=== PATIENT | female | born 1945 | race Caucasian/White ===

== ENCOUNTER 2017-05-13 17:23 | Emergency (ER) | payer OTHER ==
[~2017-05-13] VITALS: Ht 157.5 cm; Wt 69.2 kg
[~2017-05-13 17:23] MED LIST: ACET-1256 PO; ASCA500 PO; LMC25 PO; NAPR1TAB9 PO; SERT25TA PO
[2017-05-13 17:27] VITALS: TEMP 36.7; Ht 157.5 cm; Wt 69.2 kg
[2017-05-13] MEDS ORDERED: LAMO200T38 PO (18:08)
[2017-05-13] MEDS ORDERED: VALERIAN ROOT PO (18:08)
[2017-05-13] MEDS ORDERED: SERT50TA PO (18:08)
[2017-05-13 18:28] LABS: HEMATOCRIT 42.9 % (37-47); MEAN CELL VOLUME 90.1 fL (80-100); MEAN CORPUSCULAR HGB CONC 33.3 g/dl (32-36); PLATELET COUNT 293 K/uL (130-400); RED BLOOD COUNT 4.76 M/uL (4.2-5.4); WHITE BLOOD COUNT 6.29 K/uL (4.8-10.8)
--- NOTE | 2017-05-13 18:37 | EMERGENCY ROOM VISIT NOTE ---
History Report prepared by Tiffany: Som Carmona Under the Supervision of: Dr. Bong Cabral M.D. First contact with patient: 17:34 Chief Complaint: ANXIETY Stated Complaint: SEVERE ANXIETY, NAUSEA History of Present Illness The patient is a 72 year old female who presents to the Emergency Room with complaints of constant, worsening anxiety beginning 2 weeks ago. The patient states that she has not been able to sleep for the past two weeks, and she recently altered the medications that she has been taking. She reports that she reduced her dose of Lamictal from 200mg to 100mg, and she takes 50mg of Zoloft as well. The patient notes that she stopped taking all of her other medications because she believes her medication is causing her symptoms. She states "all I want to do is get off of all my medication." The patient reports that she is experiencing auditory hallucinations, nausea, and tremors. She denies suicidal intentions. The patient also denies being exposed to stressor such as family, friends, and financial issues. She also denies a history of liver, kidney, and spleen issues. The patient states that she has never been hospitalized for her anxiety. She reports that her anxiety started 2 years ago when her significant other from COPD. The patient notes that two weeks ago she went to see her psychiatrist Dr. Cota after a weekend of terrible anxiety. She states that she started a new medication (Buspar) but stopped taking it because it caused a major anxiety attack. Source of History: patient Onset: two weeks ago Position: other (global) Quality: other (anxiety) Timing: constant, worsening Associated Symptoms: + nausea Note: Associated symptoms: auditory hallucinations and tremors. She denies suicidal intentions. Review of Systems See HPI for pertinent positives & negatives. A total of 10 systems reviewed and were otherwise negative. Past Medical & Surgical Medical Problems: (1) ESOPHAGEAL REFLUX (2) HYPERLIPIDEMIA NEC/NOS Family History Patient reports no known family medical history. Social History Smoking Status: Never Smoker Alcohol Use: none Drug Use: none Marital Status: single Housing Status: assisted living Occupation Status: retired Current/Historical Medications Scheduled Lamotrigine (Lamictal), 100 MG PO QAM Sertraline (Zoloft), 50 MG PO DAILY [Valerian Root], 1 CAP PO DAILY Scheduled PRN Hydroxyzine Pamoate (Vistaril), 2 CAP PO Q6H PRN for Anxiety/Agitation Allergies Coded Allergies: No Known Allergies (Verified , 04/09/17) Physical Exam Vital Signs Date Time Temp Pulse Resp B/P (MAP) Pulse Ox O2 Delivery O2 Flow Rate FiO2 05/13/17 17:27 36.7 92 20 142/91 97 Room Air Physical Exam GENERAL: Patient is anxious, no distress. HEENT: No acute trauma, normocephalic atraumatic, mucous membranes moist, no nasal congestion, no scleral icterus. NECK: No stridor, no adenopathy, no meningismus, trachea is midline. LUNGS: Clear to auscultation bilaterally, no wheeze, no rhonchi, breath sounds equal. HEART: Without murmurs gallops or rubs, regular rate and rhythm. ABDOMEN: Soft, nontender, bowel sounds positive, no hernias, no peritonitis. EXTREMITIES: No cyanosis or edema, full range of motion of all the joints without pain or difficulty, no signs for acute trauma. NEUROLOGIC: Oriented x 3, no acute motor or sensory deficits, no focal weakness. SKIN: No rash, no jaundice, no diaphoresis. PSYCH: Denies suicidal intensions, pt is anxious and cooperative Medical Decision & Procedures Laboratory Results 05/13/17 18:15 05/13/17 18:15 Test 05/13/17 18:15 Red Blood Count 4.76 M/uL (4.2-5.4) Mean Corpuscular Volume 90.1 fL (80-100) Mean Corpuscular Hemoglobin 30.0 pg (25-34) Mean Corpuscular Hemoglobin Concent 33.3 g/dl (32-36) RDW Standard Deviation 42.6 fL (36.4-46.3) RDW Coefficient of Variation 12.9 % (11.5-14.5) Mean Platelet Volume 10.0 fL (7.4-10.4) Anion Gap 10.0 mmol/L (3-11) Est Creatinine Clear Calc Drug Dose 59.2 ml/min Estimated GFR () 89.6 Estimated GFR (Non- 77.3 BUN/Creatinine Ratio 25.1 (10-20) Calcium Level 9.4 mg/dl (8.5-10.1) Total Bilirubin 0.3 mg/dl (0.2-1) Aspartate Amino Transf (AST/SGOT) 16 U/L (15-37) Alanine Aminotransferase (ALT/SGPT) 25 U/L (12-78) Alkaline Phosphatase 102 U/L (45-117) Total Protein 7.8 gm/dl (6.4-8.2) Albumin 4.3 gm/dl (3.4-5.0) Globulin 3.5 gm/dl (2.5-4.0) Albumin/Globulin Ratio 1.2 (0.9-2) Thyroid Stimulating Hormone (TSH) 1.540 uIu/ml (0.300-4.500) Ethyl Alcohol mg/dL < 3.0 mg/dl (0-3) Laboratory results reviewed by me. ED Course 1734: The patient was evaluated in room A06. A complete history and physical exam was performed. 1854: Reevaluated the patient. She is feeling better and is willing to try Vistaril. Discussed results and discharge instructions: she verbalized understanding and agreement. The patient is ready for discharge. 1858: Ordered Vistaril Tab 100mg PO--pt was given the pills to take home since the pharmacies are currently closed. Medical Decision Differential diagnosis: anxiety, depression, suicidal ideations, thyroid disorder, drug and alcohol abuse, medication side effect Medication Reconciliation: I attest that I have personally reviewed the patient' s current medication list. Blood pressure screening: Patient was found to have a slightly elevated blood pressure due to circumstances. I do not believe that the patient requires hypertension monitoring. There is no leukocytosis or concerning anemia. No significant electrolyte abnormality, kidney failure or hepatitis. The patient appears to be in a euthyroid state. Alcohol level is undetectable. The patient denies being suicidal. She does not really want to stay in the hospital. She was looking for some help with her anxiety. She feels that when she weans off all her meds, she will be better. The psychiatry services were contacted. They suggested Vistaril when necessary. The patient will see her psychiatrist this week for a recheck. The patient was encouraged to return if feeling suicidal or if feeling worse. She did not meet any criteria for an involuntary commitment. Of note, as per old records, she is bipolar. The Lamictal was started because of her bipolar disease. Impression Primary Impression: Anxiety Scribe Attestation The scribe's documentation has been prepared under my direction and personally reviewed by me in its entirety. I confirm that the note above accurately reflects all work, treatment, procedures, and medical decision making performed by me. Departure Information Dispostion Home / Self-Care Prescriptions Hydroxyzine Pamoate (VISTARIL) 25 Mg Cap 2 CAP PO Q6H Y for Anxiety/Agitation for 5 Days, #40 CAP 1 Refill Prov: Bong Cabral M.D. 05/13/17 Referrals Mary Ann Lopez M.D. (PCP) Forms HOME CARE DOCUMENTATION FORM, IMPORTANT VISIT INFORMATION Patient Instructions My [facility] Additional Instructions use vistaril 2 tab (50 mg) every 6 hours as needed for your symptoms talk with your doctor for an appt this week return if worsening or if you are feeling suicidal lab testing today was all ok
[2017-05-13 18:46] LABS: BUN/CREATININE RATIO 25.1 (10-20); CALCIUM 9.4 mg/dl (8.5-10.1); CREATININE 0.76 mg/dl (0.60-1.20); POTASSIUM 4.1 mmol/L (3.5-5.1)
[2017-05-13 18:57] LABS: ALB/GLOB RATIO 1.2 (0.9-2); THYROID STIMULATING HORMONE 1.54 uIu/ml (0.300-4.500)
[2017-05-13] MEDS ORDERED: hydrOXYzine HCL 25 MG TAB PO STA (18:58)
[2017-05-13] MEDS ORDERED: HYDR25CA PO (19:03)
[2017-05-13] MEDS ORDERED: EMPTY 8 DRAM VIAL ONE (19:09)
[2017-05-13 19:20] VITALS: BP 143/87; PULSE 73; O2SAT 99
[2017-10-11] MEDS ORDERED: GABA-113 PO (08:42)
[2017-10-11] MEDS ORDERED: FLUT0.15 (08:42)
== END 2017-05-13 19:20 | disposition home or self-care (01) ==
LOC: C.EDB 17:24 → C.EDA 19:20
DX: F41.9 Anxiety disorder, unspecified (principal); R11.0 Nausea; E78.5 Hyperlipidemia, unspecified; Z79.899 Other long term (current) drug therapy

== ENCOUNTER → 2017-07-20 | Outpatient (CLI) | payer OTHER ==
[~2017-07-20] MED LIST changes: -ACET-1256 PO; -ASCA500 PO; +HYDR25CA PO; +LAMO200T38 PO; -LMC25 PO; -NAPR1TAB9 PO; -SERT25TA PO; +SERT50TA PO; +VALERIAN ROOT PO
[2017-07-20 15:00] LABS: URINE APPEARANCE CLEAR (CLEAR); URINE BILIRUBIN NEG (NEG); URINE COLOR DK YELLOW; URINE NITRITE NEG (NEG); URINE SPECIFIC GRAVITY 1.021 (1.000-1.030); UROBILINOGEN NEG (NEG); ZZUR CULT IF INDIC CLEAN CATCH NO
[2017-07-20 15:02] LABS: BASO % 0.7 %; BASO ABS # 0.04 K/uL (0-0.2); COMPLETE YES; EOS % 5.9 %; IG% 0.2 %; LYMPH % 38.1 %; LYMPH ABS # 2.21 K/uL (1.2-3.4); MEAN CELL VOLUME 91.5 fL (80-100); MEAN CORPUSCULAR HEMOGLOBIN 30.3 pg (25-34); MEAN CORPUSCULAR HGB CONC 33.1 g/dl (32-36); MEAN PLATELET VOLUME 10.6 fL (7.4-10.4); MONO % 9.1 %; PLATELET COUNT 266 K/uL (130-400); RED BLOOD COUNT 4.26 M/uL (4.2-5.4)
[2017-07-20 15:09] LABS: PROTHROMBIN TIME (PATIENT) 10.7 SECONDS (9.0-12.0)
[2017-07-20 15:11] LABS: MANUAL MICROSCOPIC REQUIRED? NO; REVIEW REQ? NO
[2017-07-20 15:32] LABS: BLOOD UREA NITROGEN 30 mg/dl (7-18); CALCIUM 9.5 mg/dl (8.5-10.1); CARBON DIOXIDE 27 mmol/L (21-32); CHLORIDE 106 mmol/L (98-107); CREATININE 0.93 mg/dl (0.60-1.20); GLUCOSE 111 mg/dl (70-99); POTASSIUM 3.9 mmol/L (3.5-5.1); SODIUM 139 mmol/L (136-145)
== END | disposition home or self-care (01) ==
LOC: C.LAB1850 13:25
PROVIDERS: ATTEND Physician Assistant
DX: Z01.818 Encounter for other preprocedural examination (principal)

== ENCOUNTER 2017-08-02 00:01 | Emergency (ER) | payer OTHER ==
[~2017-08-02] VITALS: Ht 157.5 cm; Wt 70.4 kg
[2017-08-02 00:09] VITALS: TEMP 36.6; Ht 157.5 cm; Wt 70.4 kg
[2017-08-02] MEDS ORDERED: ATIVAN 1MG HOMEPACK PO ONE (00:30)
--- NOTE | 2017-08-02 00:33 | EMERGENCY ROOM VISIT NOTE ---
History Report prepared by Scribchivo: Fabian Buchanan Under the Supervision of: Dr. Estevan Forde D.O. First contact with patient: 00:21 Chief Complaint: CARDIAC ASSESSMENT Stated Complaint: ANXIETY,SQUEEZING HEART History of Present Illness The patient is a 72 year old female who presents to the Emergency Room with complaints of persistent anxiety beginning this week. The patient states that she is scheduled for a nuclear stress test tomorrow, and was told that she had problems with cardiomyopathy. She states that she was told she has 30% heart function. She states that she has been seen in the ED in the past for similar symptoms, and was given Klonopin which completely resolved her symptoms. The patient states that she has had her anxiety medications changed many times recently. She notes that she is also on anti-seizure medications. Source of History: patient Onset: this week Quality: other (anxiety) Timing: other (persistent) Review of Systems See HPI for pertinent positives and negatives. A total of six systems were reviewed and were otherwise negative. Past Medical & Surgical Medical Problems: (1) ESOPHAGEAL REFLUX (2) HYPERLIPIDEMIA NEC/NOS Family History Patient reports no known family medical history. Social History Smoking Status: Never Smoker Alcohol Use: none Drug Use: none Marital Status: single Housing Status: assisted living Occupation Status: retired Current/Historical Medications Scheduled Lamotrigine (Lamictal), 100 MG PO QAM Sertraline (Zoloft), 50 MG PO DAILY [Valerian Root], 1 CAP PO DAILY Scheduled PRN Hydroxyzine Pamoate (Vistaril), 2 CAP PO Q6H PRN for Anxiety/Agitation Allergies Coded Allergies: No Known Allergies (Verified , 04/09/17) Physical Exam Vital Signs Date Time Temp Pulse Resp B/P (MAP) Pulse Ox O2 Delivery O2 Flow Rate FiO2 08/02/17 00:09 36.6 89 20 157/90 97 Room Air Physical Exam GENERAL: Awake, alert, well-appearing, in no distress HENT: Normocephalic, atraumatic. Oropharynx unremarkable. EYES: Normal conjunctiva. Sclera non-icteric. NECK: Supple. No nuchal rigidity. FROM. No JVD. RESPIRATORY: Clear to auscultation. CARDIAC: Regular rate, normal rhythm. Extremities warm and well perfused. Pulses equal. ABDOMEN: Soft, non-distended. No tenderness to palpation. No rebound or guarding. No masses. RECTAL: Deferred. MUSCULOSKELETAL: Chest examination reveals no tenderness. The back is symmetrical on inspection without obvious abnormality. There is no CVA tenderness to palpation. No joint edema. LOWER EXTREMITIES: Calves are equal size bilaterally and non-tender. No edema. No discoloration. NEURO: Normal sensorium. No sensory or motor deficits noted. SKIN: No rash or jaundice noted. PSYCH: Anxious. Medical Decision & Procedures ED Course 0024: The patient was evaluated in room A10. A complete history and physical exam was performed. 0030: Ordered Ativan 1 mg homepack PO. 0035: I reevaluated the patient. Discussed results and discharge instructions: she verbalized understanding and agreement. The patient is ready for discharge. Medical Decision Differential diagnoses include but are not limited to; anxiety, panic disorder, and mood disorder. Patient will be treated with Ativan patient has a history of anxiety she is worried about the nuclear stress test that she needs to have due to a low ejection fraction and reportedly she's having this test done tomorrow. There are no other complaints from the patient and I treated her with an outpatient Ativan home pack Impression Primary Impression: Anxiety Scribe Attestation The scribe's documentation has been prepared under my direction and personally reviewed by me in its entirety. I confirm that the note above accurately reflects all work, treatment, procedures, and medical decision making performed by me. Departure Information Dispostion Home / Self-Care Referrals Mary Ann Lopez M.D. (PCP) Patient Instructions Anxiety Disorder, My [facility]
[2017-08-02 00:52] VITALS: BP 149/87; PULSE 72; O2SAT 97
== END 2017-08-02 00:53 | disposition home or self-care (01) ==
LOC: C.EDB 00:03 → C.EDA 00:53
DX: F41.9 Anxiety disorder, unspecified (principal); E78.5 Hyperlipidemia, unspecified; K21.9 Gastro-esophageal reflux disease without esophagitis; Z79.899 Other long term (current) drug therapy

== ENCOUNTER 2017-08-27 19:24 | Emergency (ER) | payer OTHER ==
[~2017-08-27] VITALS: Ht 157.5 cm; Wt 71.5 kg
[2017-08-27 19:38] VITALS: TEMP 36.7; Ht 157.5 cm; Wt 71.5 kg
--- NOTE | 2017-08-27 20:26 | EMERGENCY ROOM VISIT NOTE ---
ED Visit Note First contact with patient: 20:01 CHIEF COMPLAINT: Finger injury HISTORY OF PRESENT ILLNESS: This 72-year-old female patient presents to the emergency department, ambulatory, approximately 5 days after injuring the left fourth finger she fell. The patient states she believes she "stoved" her finger when she fell. Her biggest concern right now is that the PIP joint is swollen and she is having difficulty getting her ring off of her finger. The patient rates the pain as sharp and 1/10. The patient has full range of motion of the finger. No numbness or tingling. No lacerations. No other injuries. The patient has not had previous fracture to this finger. The patient has taken nothing for the pain. REVIEW OF SYSTEMS: A 6 system review of systems was completed with positives and pertinent negatives in the HPI. ALLERGIES: None MEDICATIONS: Spironolactone PMH: Broken heart syndrome SOCIAL HISTORY: The patient lives locally with family. She denies drug, alcohol , tobacco use. PHYSICAL EXAM: Vital Signs: Reviewed Nurse's notes, vital signs stable. GENERAL : This is a 72-year-old female, in no acute distress, but appears to be in pain , well-developed, well-nourished. MUSCULOSKELETAL: There is no deformity of the left fourth finger. The patient has full flexion and full extension of the left fourth finger and strength to resistance is 5/5. The PIP joint is maximally tender. There is no ligamentous instability. There is no laceration. Capillary refill less than 2 seconds. No tenderness of the remaining fingers or hand. Full range of motion of the wrist. NEURO: Alert and oriented to person, place, and time. Normal sensation to light and sharp touch. RADIOLOGY: X-Ray Left 4th finger LEFT FOURTH FINGER RADIOGRAPHS CLINICAL HISTORY: Left 4th PIP pain. COMPARISON: None FINDINGS: Alignment of the left fourth finger is anatomic. No acute fracture is identified. There is soft tissue swelling at the level of the PIP joint of the fourth digit. Moderate joint space narrowing is noted with mild osteophytosis. Possible erosive changes are noted at the left third metacarpophalangeal joint which is partially imaged on this exam. IMPRESSION: 1. No acute fracture or dislocation of the left fourth finger. 2. Moderate joint space narrowing with mild osteophytosis at the PIP joint of the fourth digit with soft tissue swelling. Possible erosive changes at the left third metacarpophalangeal joint, partially imaged on this exam. The findings raise the possibility of an erosive arthropathy. Electronically signed by: Portillo Pierre M.D. 08/27/2017 8:47 PM Dictated Date/Time: 08/27/2017 8:43 PM EMERGENCY DEPARTMENT COURSE: I examined the patient. I did attempt removal of the patient's ring with an elastic band. I was unsuccessful. At her request, the patient's ring was removed with ring cutters. An x-ray of the left fourth finger was reviewed by myself and radiologist and showed acute fracture. I did offer a finger splint or clarisa tape and the patient declines. Discharge instructions were reviewed. The patient was seen and evaluated by Dr. Rae. The patient was discharged home in good condition. I attest that I have personally reviewed the patient's current medication list. Patient was found to have normal blood pressure on screening and does not require follow-up. DIFFERENTIAL DIAGNOSIS: Fracture, contusion, compartment syndrome, sprain, strain, and others DIAGNOSIS: Finger contusion DISCHARGE INSTRUCTIONS: You were seen in the emergency department today for a left ring finger contusion. As discussed, there was no fracture on the x-ray. We did cut your ring off of your finger. Ibuprofen(Motrin, Advil) may be used for fever or pain. Use 600mg every six hours as needed. Take with food. Avoid using more than 2400mg in a 24 hour period. Do not use 2400mg per day for more than three consecutive days without physician direction. Prolonged inappropriate use can lead to stomach upset or ulcers. (AND/OR) Acetaminophen(Tylenol) may be used for fever or pain. Use 1000mg every six hours as needed. Avoid using more than 3000mg in a 24 hour period. Follow-up with your primary care provider for worsening problems or pain. Return to the emergency department for significant swelling, redness, puslike drainage, fever, chills, or other concerning symptoms. Problem List Medical Problems: (1) ESOPHAGEAL REFLUX Status: Chronic (2) HYPERLIPIDEMIA NEC/NOS Status: Chronic Current/Historical Medications Scheduled Lamotrigine (Lamictal), 100 MG PO QAM Sertraline (Zoloft), 50 MG PO DAILY [Valerian Root], 1 CAP PO DAILY Scheduled PRN Hydroxyzine Pamoate (Vistaril), 2 CAP PO Q6H PRN for Anxiety/Agitation Allergies Coded Allergies: No Known Allergies (Verified , 04/09/17) Vital Signs Date Time Temp Pulse Resp B/P (MAP) Pulse Ox O2 Delivery O2 Flow Rate FiO2 08/27/17 21:07 85 18 139/84 97 08/27/17 19:38 36.7 88 18 155/83 94 Room Air Departure Information Impression Primary Impression: Finger contusion Dispostion Home / Self-Care Condition GOOD Referrals No Doctor, Assigned (PCP) Patient Instructions ED Contusion Finger, My [facility] Additional Instructions You were seen in the emergency department today for a left ring finger contusion. As discussed, there was no fracture on the x-ray. We did cut your ring off of your finger. Ibuprofen(Motrin, Advil) may be used for fever or pain. Use 600mg every six hours as needed. Take with food. Avoid using more than 2400mg in a 24 hour period. Do not use 2400mg per day for more than three consecutive days without physician direction. Prolonged inappropriate use can lead to stomach upset or ulcers. (AND/OR) Acetaminophen(Tylenol) may be used for fever or pain. Use 1000mg every six hours as needed. Avoid using more than 3000mg in a 24 hour period. Follow-up with your primary care provider for worsening problems or pain. Return to the emergency department for significant swelling, redness, puslike drainage, fever, chills, or other concerning symptoms. Problem Qualifiers Primary Impression: Finger contusion Encounter type: initial encounter Finger: ring finger Damage to nail status : without damage Laterality: left Qualified Codes: S60.042A - Contusion of left ring finger without damage to nail, initial encounter
--- NOTE | 2017-08-27 20:48 | DIAGNOSTIC IMAGING REPORT ---
LEFT FOURTH FINGER RADIOGRAPHS CLINICAL HISTORY: Left 4th PIP pain. COMPARISON: None FINDINGS: Alignment of the left fourth finger is anatomic. No acute fracture is identified. There is soft tissue swelling at the level of the PIP joint of the fourth digit. Moderate joint space narrowing is noted with mild osteophytosis. Possible erosive changes are noted at the left third metacarpophalangeal joint which is partially imaged on this exam. IMPRESSION: 1. No acute fracture or dislocation of the left fourth finger. 2. Moderate joint space narrowing with mild osteophytosis at the PIP joint of the fourth digit with soft tissue swelling. Possible erosive changes at the left third metacarpophalangeal joint, partially imaged on this exam. The findings raise the possibility of an erosive arthropathy. Electronically signed by: Portillo Pierre M.D. 08/27/2017 8:47 PM Dictated Date/Time: 08/27/2017 8:43 PM
--- NOTE | 2017-08-27 21:03 | EMERGENCY ROOM VISIT NOTE ---
ED Visit Note First contact with patient: 20:01 The patient was seen and examined with Hakeem Calero PA-C. I agree with the history, physical and findings. Please see the note for disposition and details.
[2017-08-27 21:07] VITALS: BP 139/84; PULSE 85; O2SAT 97
== END 2017-08-27 21:08 | disposition home or self-care (01) ==
LOC: C.EDB 19:25 → C.EDD 21:08
DX: S60.042A Contusion of left ring finger without damage to nail, initial encounter (principal); Y92.9 Unspecified place or not applicable; W19.XXXA Unspecified fall, initial encounter; K21.9 Gastro-esophageal reflux disease without esophagitis; E78.5 Hyperlipidemia, unspecified; Z79.899 Other long term (current) drug therapy

== ENCOUNTER 2017-10-13 14:11 | Emergency (ER) | payer OTHER ==
[~2017-10-13] VITALS: Ht 157.5 cm; Wt 72.3 kg
[~2017-10-13 14:11] MED LIST changes: +FLUT0.15; +GABA-113 PO; -HYDR25CA PO; -LAMO200T38 PO; -SERT50TA PO; -VALERIAN ROOT PO
[2017-10-13 14:26] VITALS: TEMP 36.8; Ht 157.5 cm; Wt 72.3 kg
[2017-10-13 15:20] LABS: URINE APPEARANCE CLEAR (CLEAR); URINE BILIRUBIN NEG (NEG); URINE COLOR YELLOW; URINE EPITHELIAL CELL AUTO 0-5 /lpf (0-5); URINE NITRITE NEG (NEG); URINE SPECIFIC GRAVITY 1.015 (1.000-1.030); UROBILINOGEN NEG (NEG); ZZUR CULT IF INDIC CLEAN CATCH NO
[2017-10-13 15:23] LABS: MANUAL MICROSCOPIC REQUIRED? NO; REVIEW REQ? NO
[2017-10-13] MEDS ORDERED: PHENAZOPYRIDINE HCL 200 MG TAB PO STA (15:39)
[2017-10-13] MEDS ORDERED: AMOXICILLIN/CLAVULANATE TAB 875 MG TAB PO ONE (15:45)
[2017-10-13] MEDS ORDERED: AMOX875T PO (15:49)
[2017-10-13] MEDS ORDERED: PHEN-876 PO (15:49)
[2017-10-13 16:00] VITALS: BP 154/82; PULSE 95; O2SAT 96
--- NOTE | 2017-10-13 18:06 | EMERGENCY ROOM VISIT NOTE ---
History Report prepared by Tiffany: Kesha Burns Under the Supervision of: Dr. Hakeem Chong M.D. First contact with patient: 14:32 Chief Complaint: DIZZY Stated Complaint: DIZZY, NAUSEA, UTI SYMPTOMS, THROAT PROBLEM Nursing Triage Summary: triage note: pt reports "i have had a bad cold since the and saw my pcp, i am dizzy and may have a uti, i have urninary frequency and urgency." History of Present Illness The patient is a 72 year old female who presents to the Emergency Room with complaints of head cold symptoms beginning 11 days ago. The patient notes a sore throat, nausea, nasal congestion, dizziness, and lightheadedness. The patient saw Rebecca Vera 4 days ago and was put on Flonase. She reports bladder tightness and increased urination frequency. The patient believes she might have a UTI. The patient has a history of anxiety. Pt denies LOC, headache , fevers, chills, diaphoresis, visual changes, neck pain, chest pain, breathing difficulties, vomiting, abdominal pain, back pain, melena, hematochezia, numbness, weakness, lymphadenopathy, rash, or other complaints. Source of History: patient Onset: 4 days ago Position: head Quality: other (cold symptoms) Associated Symptoms: + sorethroat, + nausea, + urinary symptoms Review of Systems See HPI for pertinent positives and negatives. A total of ten systems were reviewed and were otherwise negative. Past Medical & Surgical Medical Problems: (1) ESOPHAGEAL REFLUX (2) HYPERLIPIDEMIA NEC/NOS Family History Patient reports no known family medical history. Social History Smoking Status: Never Smoker Alcohol Use: none Drug Use: none Marital Status: single Housing Status: assisted living Occupation Status: retired Current/Historical Medications Scheduled Amoxicillin & Pot Clavulanate (Augmentin 875-125 mg), 875 MG PO BID Fluticasone Propionate (Nasal) (Flonase Allergy Relief), 2 SPRAY NA QAM Gabapentin (Neurontin), 300 MG PO TID Scheduled PRN Phenazopyridine HCl (Pyridium), 200 MG PO TID PRN for Frequency/Burning w/ Urination Allergies Coded Allergies: Lisinopril (Unverified Allergy, Intermediate, FACIAL SWELLING, 10/13/17) Physical Exam Vital Signs Date Time Temp Pulse Resp B/P (MAP) Pulse Ox O2 Delivery O2 Flow Rate FiO2 11/18/17 16:00 95 18 154/82 96 10/13/17 14:26 36.8 95 18 119/63 96 Room Air Physical Exam GENERAL: Awake, alert, well appearing, no distress HENT: Normocephalic, atraumatic. TM's normal. Mild nasal congestion, mild posterior erythema. EYES: PERRL. EOMI. Normal conjunctiva. Sclera non-icteric. NECK: Supple. No nuchal rigidity. FROM. No JVD or bruit. RESPIRATORY: CTA CARDIAC: RRR. No murmur. ABDOMEN: Minimal suprapubic tenderness. Soft, non distended. No rebound or guarding. No masses. RECTAL: Deferred. MUSCULOSKELETAL: Unremarkable. No edema. No discoloration. Gross motor strength symmetric. NEURO: Cranial nerves 2-12 grossly intact. Normal sensorium. No sensory or motor deficits noted. Speech normal. Gait normal. SKIN: No rash or jaundice noted. LYMPH: No adenopathy. Medical Decision & Procedures Laboratory Results Test 10/13/17 15:01 Urine Color YELLOW Urine Appearance CLEAR (CLEAR) Urine pH 5.0 (4.5-7.5) Urine Specific [place] 1.015 (1.000-1.030) Urine Protein NEG (NEG) Urine Glucose (UA) NEG (NEG) Urine Ketones NEG (NEG) Urine Occult Blood NEG (NEG) Urine Nitrite NEG (NEG) Urine Bilirubin NEG (NEG) Urine Urobilinogen NEG (NEG) Urine Leukocyte Esterase TRACE (NEG) Urine WBC (Auto) 1-5 /hpf (0-5) Urine RBC (Auto) 0-4 /hpf (0-4) Urine Hyaline Casts (Auto) 0 /lpf (0-5) Urine Epithelial Cells (Auto) 0-5 /lpf (0-5) Urine Bacteria (Auto) NEG (NEG) Laboratory results reviewed by me Medications Administered Medications (Trade) Dose Ordered Sig/Kole Route Start Time Stop Time Status Last Admin Dose Admin Amoxicillin/ Clavulanate Potassium (Augmentin Tab) 875 mg NOW ONCE PO 10/13/17 15:45 10/13/17 15:46 DC 10/13/17 15:56 875 MG Phenazopyridine HCl (Pyridium Tab) 200 mg NOW STAT PO 10/13/17 15:39 10/13/17 15:40 DC 10/13/17 15:56 200 MG ED Course 1439: The patient was evaluated in room C3. A complete history and physical exam was performed. 1537: I updated the patient. She is resting comfortably. 1539: Pyridium Tab 200 mg PO. 1545: Augmentin Tab 875 mg PO. 1554:I reevaluated the patient. Discussed results and discharge instructions: She verbalized understanding and agreement. The patient is ready for discharge. Medical Decision Triage Nursing notes reviewed. The patient's presentation and history were concerning for urinary symptoms, dizziness and URI symptoms Etiologies such as sinusitis, URI, UTI, interstitial cystitis, benign positional vertigo, tumor, infection, hypoglycemia, electrolyte abnormalities, cardiac sources, intracerebral event, toxicologic, neurologic, as well as others were entertained. Patient was evaluated. Clinically she had findings that were concerning for possible sinus infection. She did not have any focal neurologic findings. She does not describe any vertigo. She is not off balance. She does feels congested and notes some dizziness. The patient also notes urinary symptoms. She has some superpubic discomfort on palpation but a benign abdomen. Blood work was deferred and the patient was comfortable with this. Her urinalysis did not reveal any obvious findings. She was given a dose of Pyridium for the urinary discomfort. She will be treated with Augmentin given the sinus issues. A urine culture is pending. Her urine should be covered by Augmentin in case there is anything abnormal. The patient felt very comfortable with this plan and was very pleased with the treatment. She will follow-up closely this week with her primary office. If she worsens in any way she will be back. I gave my usual and customary discussion regarding this issue. By the evaluation outlined above other emergent etiologies such as those listed in the differential, as well as others, were deemed relatively unlikely. The patient was educated about the findings as listed above. All questions were answered and the patient was pleased with the treatment. Return instructions were outlined and the patient was discharged in stable condition. The patient was referred to his PCP for follow-up for a recheck of the current condition. Blood Pressure Screening Patient's blood pressure: Normal blood pressure Impression Primary Impression: Dysuria Additional Impression: Sinusitis Scribe Attestation The scribe's documentation has been prepared under my direction and personally reviewed by me in its entirety. I confirm that the note above accurately reflects all work, treatment, procedures, and medical decision making performed by me. Departure Information Dispostion Home / Self-Care Prescriptions Amoxicillin & Pot Clavulanate (Augmentin 875-125 mg) 1 Tab Tab 875 MG PO BID for 7 Days, #13 TAB Prov: Hakeem Chong MD 10/13/17 Phenazopyridine HCl (Pyridium) 200 Mg Tab 200 MG PO TID Y for Frequency/Burning w/Urination, #6 TAB Prov: Hakeem Chong MD 10/13/17 Referrals No Doctor, Assigned (PCP) Forms HOME CARE DOCUMENTATION FORM, IMPORTANT VISIT INFORMATION Patient Instructions My [facility] Additional Instructions UPPER RESPIRATORY INFECTION INSTRUCTIONS: Acetaminophen(Tylenol) may be used for fever or pain. Use 1000mg every six hours as needed. Avoid using more than 4000mg in a 24 hour period. (AND/OR) Ibuprofen(Motrin, Advil) may be used for fever or pain. Use 600mg every six hours as needed. Take with food. Avoid using more than 2400mg in a 24 hour period. Do not use 2400mg per day for more than three consecutive days without physician direction. Prolonged inappropriate use can lead to stomach upset or ulcers. Afrin nasal spray: 2-3 sprays to each nostril twice daily as needed for congestion. Do not use for more than 3-4 days because it can lead to worsening rebound congestion. Amoxicillin Clavulanate (Augmentin) 875mg: Take one pill twice daily for 7 days for your infection. All antibiotics can cause diarrhea. If this occurs and you feel worse or it does not resolve in 1-2 days follow up with your doctor or return to the Emergency Department as this could be signs of serious underlying problems. Any medication can cause an allergic reaction, stop the pills immediately and return to the ER for rash, hives, breathing difficulties, or swelling. Pyridium 200mg: Take one three times daily as needed for urinary pain. Rest and drink plenty of fluids. Controlling your fever with Tylenol and Ibuprofen as above will make you feel better. Return to the ER for severe headache, neck stiffness, chest pain, difficulty breathing, fevers, vomiting, abdominal pain, worsening of your condition, or as needed. Follow up with your primary physician this week for a recheck of your current condition. Problem Qualifiers
[2017-10-14] MEDS ORDERED: PHEN-876 PO (17:54)
[2017-10-14] MEDS ORDERED: IBUP-1050 PO (17:54)
[2017-10-14] MEDS ORDERED: PHEN95TA10 PO (17:54)
[2017-10-14] MEDS ORDERED: AMOX875T PO (17:54)
[2017-10-14] MEDS ORDERED: DIPH25CA5 PO (17:56)
[2017-10-14] MEDS ORDERED: PRED20TA PO (19:31)
== END 2017-10-13 16:00 | disposition home or self-care (01) ==
LOC: C.EDB 14:12 → C.EDC 16:00
DX: R30.0 Dysuria (principal); J32.9 Chronic sinusitis, unspecified; K21.9 Gastro-esophageal reflux disease without esophagitis; E78.5 Hyperlipidemia, unspecified; F41.9 Anxiety disorder, unspecified

== ENCOUNTER 2017-10-14 17:06 | Emergency (ER) | payer OTHER ==
[~2017-10-14] VITALS: Ht 157.5 cm; Wt 71.4 kg
[~2017-10-14 17:06] MED LIST changes: +AMOX875T PO; +PHEN-876 PO
[2017-10-14 17:07] VITALS: Ht 157.5 cm; Wt 71.4 kg
[2017-10-14] MEDS ORDERED: KETOROLAC TROMETHAMINE 30 MG/ML VIAL IV STA (17:25)
[2017-10-14] MEDS ORDERED: ACETAMINOPHEN 500 MG TAB PO STA (17:25)
[2017-10-14] MEDS ORDERED: DEXAMETHASONE INJ 10 MG in SYRINGE 0 ML IV STA (17:25)
--- NOTE | 2017-10-14 17:32 | EMERGENCY ROOM VISIT NOTE ---
History Report prepared by Tiffany: Ludwig Collins Under the Supervision of: Dr. Bong Cabral M.D. First contact with patient: 17:18 Chief Complaint: HEAD PAIN Stated Complaint: SINUS ISSUES History of Present Illness The patient is a 72 year old female who presents to the Emergency Room with complaints of a constant headache beginning today. The patient states that she came into the emergency department yesterday for sinus and bladder problems that had been persisting for the past 11 days. She notes that she was discharged and told to take Augmentin. She reports that her bladder symptoms have gotten better, but states that she developed a headache today that is located on the top of her head and goes into her left ear. She notes that her pain feels like a "pounding and ringing" in her left ear. She denies any fever and head trauma, but complains of chills, a mild cough, and nausea. She reports that she is on Flomax and gabapentin, and states that she took Motrin and three doses of Augmentin with no relief of her symptoms. The patient states that she has had two previous sinus surgeries. She denies any known recent exposure to ticks. Source of History: patient Onset: today Position: head (top of head and over to the left ear) Quality: other ("pounding and ringing") Timing: constant Associated Symptoms: + chills, + cough (mild), + nausea, No fevers Note: She denies any recent head trauma. Review of Systems See HPI for pertinent positives & negatives. A total of 10 systems reviewed and were otherwise negative. Past Medical & Surgical Medical Problems: (1) ESOPHAGEAL REFLUX (2) H/O sinus surgery (3) HYPERLIPIDEMIA NEC/NOS Family History Patient reports no known family medical history. Social History Smoking Status: Never Smoker Alcohol Use: none Drug Use: none Marital Status: single Housing Status: assisted living Occupation Status: retired Current/Historical Medications Scheduled Amoxicillin & Pot Clavulanate (Augmentin 875-125 mg), 1 TAB PO BID Fluticasone Propionate (Nasal) (Flonase Allergy Relief), 2 SPRAY NA QAM Gabapentin (Neurontin), 300 MG PO TID Ibuprofen (Advil), 600 MG PO QAM Prednisone (Prednisone), 0 PO DAILY Scheduled PRN Diphenhydramine Hcl (Benadryl), 25 MG PO Q4H PRN for PRN Phenazopyridine HCl (Pyridium), 200 MG PO TID PRN for Bladder pain Phenazopyridine HCl (Azo Urinary Pain Relief), 1 DOSE PO DIRECTED PRN for Bladder pain Allergies Coded Allergies: Lisinopril (Verified Allergy, Severe, "FACE SWELLS", 10/14/17) Physical Exam Vital Signs Date Time Temp Pulse Resp B/P (MAP) Pulse Ox O2 Delivery O2 Flow Rate FiO2 10/14/17 20:02 73 18 146/69 95 10/14/17 18:37 36.9 79 18 139/81 96 Room Air 10/14/17 17:07 36.5 92 16 193/105 97 Room Air Physical Exam GENERAL: Patient is in no acute distress. HEENT: No acute trauma, normocephalic atraumatic, mucous membranes moist, no nasal congestion, no scleral icterus. No throat erythema or exudate, TMs clear bilaterally, no tenderness with palpation over the temples. NECK: No stridor, no adenopathy, no meningismus, trachea is midline. LUNGS: Clear to auscultation bilaterally, no wheeze, no rhonchi, breath sounds equal. HEART: Without murmurs gallops or rubs, regular rate and rhythm. ABDOMEN: Soft, nontender, bowel sounds positive, no hernias, no peritonitis. EXTREMITIES: No cyanosis or edema, full range of motion of all the joints without pain or difficulty, no signs for acute trauma. NEUROLOGIC: Oriented x 3, no acute motor or sensory deficits, no focal weakness. No cerebellar deficits. SKIN: No rash, no jaundice, no diaphoresis. Medical Decision & Procedures ER Provider Diagnostic Interpretation: Radiology results as stated below per my review and radiologist interpretation: HEAD CT NONCONTRAST Findings: The paranasal sinuses and mastoid air cells are clear. The calvarium and skull base are intact. The ventricles and sulci are within normal limits. There is no mass, hematoma, midline shift, or acute infarct. Impression: No acute intracranial abnormality. Electronically signed by: Brandon South M.D. 10/14/2017 6:17 PM Laboratory Results 10/14/17 17:36 Red Blood Count 4.32, Mean Corpuscular Volume 91.0, Mean Corpuscular Hemoglobin 30.3, Mean Corpuscular Hemoglobin Concent 33.3, Mean Platelet Volume 10.1, Neutrophils (%) (Auto) 49.6, Lymphocytes (%) (Auto) 37.3, Monocytes (%) (Auto) 7.9, Eosinophils (%) (Auto) 4.5, Basophils (%) (Auto) 0.5, Neutrophils # (Auto) 2.89, Lymphocytes # (Auto) 2.17, Monocytes # (Auto) 0.46, Eosinophils # (Auto) 0.26, Basophils # (Auto) 0.03 10/14/17 17:36 Test 10/14/17 17:36 10/14/17 18:30 White Blood Count 5.82 K/uL (4.8-10.8) Red Blood Count 4.32 M/uL (4.2-5.4) Hemoglobin 13.1 g/dL (12.0-16.0) Hematocrit 39.3 % (37-47) Mean Corpuscular Volume 91.0 fL (80-100) Mean Corpuscular Hemoglobin 30.3 pg (25-34) Mean Corpuscular Hemoglobin Concent 33.3 g/dl (32-36) Platelet Count 275 K/uL (130-400) Mean Platelet Volume 10.1 fL (7.4-10.4) Neutrophils (%) (Auto) 49.6 % Lymphocytes (%) (Auto) 37.3 % Monocytes (%) (Auto) 7.9 % Eosinophils (%) (Auto) 4.5 % Basophils (%) (Auto) 0.5 % Neutrophils # (Auto) 2.89 K/uL (1.4-6.5) Lymphocytes # (Auto) 2.17 K/uL (1.2-3.4) Monocytes # (Auto) 0.46 K/uL (0.11-0.59) Eosinophils # (Auto) 0.26 K/uL (0-0.5) Basophils # (Auto) 0.03 K/uL (0-0.2) RDW Standard Deviation 43.2 fL (36.4-46.3) RDW Coefficient of Variation 12.8 % (11.5-14.5) Immature Granulocyte % (Auto) 0.2 % Immature Granulocyte # (Auto) 0.01 K/uL (0.00-0.02) Erythrocyte Sedimentation Rate 33 mm/hr (0-21) Anion Gap 10.0 mmol/L (3-11) Est Creatinine Clear Calc Drug Dose 41.9 ml/min Estimated GFR () 57.9 Estimated GFR (Non- 50.0 BUN/Creatinine Ratio 22.8 (10-20) Calcium Level 9.7 mg/dl (8.5-10.1) Total Bilirubin 0.4 mg/dl (0.2-1) Aspartate Amino Transf (AST/SGOT) 18 U/L (15-37) Alanine Aminotransferase (ALT/SGPT) 26 U/L (12-78) Alkaline Phosphatase 95 U/L (45-117) Total Protein 8.0 gm/dl (6.4-8.2) Albumin 3.8 gm/dl (3.4-5.0) Globulin 4.2 gm/dl (2.5-4.0) Albumin/Globulin Ratio 0.9 (0.9-2) Lyme Disease IgG Antibody NEG (NEG) Lyme Disease IgM Antibody NEG (NEG) Urine Color YELLOW Urine Appearance CLEAR (CLEAR) Urine pH 5.5 (4.5-7.5) Urine Specific [place] 1.015 (1.000-1.030) Urine Protein NEG (NEG) Urine Glucose (UA) NEG (NEG) Urine Ketones NEG (NEG) Urine Occult Blood NEG (NEG) Urine Nitrite NEG (NEG) Urine Bilirubin NEG (NEG) Urine Urobilinogen NEG (NEG) Urine Leukocyte Esterase TRACE (NEG) Urine WBC (Auto) 1-5 /hpf (0-5) Urine RBC (Auto) 0-4 /hpf (0-4) Urine Hyaline Casts (Auto) 0 /lpf (0-5) Urine Epithelial Cells (Auto) 0-5 /lpf (0-5) Urine Bacteria (Auto) NEG (NEG) Laboratory results reviewed by me. Medications Administered Medications (Trade) Dose Ordered Sig/Kole Route Start Time Stop Time Status Last Admin Dose Admin Ketorolac Tromethamine (Toradol Inj) 30 mg NOW STAT IV 10/14/17 17:25 10/14/17 17:29 DC 10/14/17 17:44 30 MG Acetaminophen (Tylenol Tab) 1,000 mg NOW STAT PO 10/14/17 17:25 10/14/17 17:29 DC 10/14/17 17:44 1,000 MG Dexamethasone Sodium Phosphate 10 mg/Syringe 2.5 ml @ 1 mls/min NOW STAT IV 10/14/17 17:25 10/14/17 17:29 DC 10/14/17 17:45 1 MLS/MIN ED Course 172: The patient was evaluated in room A11. A complete history and physical exam was performed. 172: Dexamethasone Sodium Phosphate 10mg/Syringe 2.5 ml @ 1mls/min IV, Tylenol Tab 1000mg PO, Toradol Inj 30mg IV 1926: I reevaluated and updated the patient. 1937: Reevaluated the patient. Discussed results and discharge instructions: She verbalized understanding and agreement. The patient is ready for discharge. Medical Decision Differential diagnoses include: temporal arteritis, otitis media, laryngitis, sinusitis, migraine headache, intracranial bleeding, meningitis. There is no leukocytosis or concerning anemia. No significant electrolyte abnormality, kidney failure or hepatitis. Sedimentation rate is not significantly elevated making temporal arteritis less likely. Urinalysis does not show infection. Lyme disease testing is negative. Brain CT shows no acute bleed or mass effect. On exam, the patient was not febrile or toxic. No focal neurologic deficits. There was no meningismus. No otitis media or pharyngitis. The patient received IV Toradol, IV Decadron and oral Tylenol. She looks improved, her blood pressure has improved. Patient presents with sinus symptoms. She is already on Augmentin. Her workup here is reassuring. She is being discharged with a prednisone taper to add to the Augmentin. She will see her doctor this week and return to our ER for worsening symptoms. Medication Reconcilliation Current Medication List: was personally reviewed by me Blood Pressure Screening Patient's blood pressure: Elevated blood pressure Blood pressure disposition: Elevated BP felt to be situational Impression Primary Impression: Sinusitis Additional Impression: Headache Scribe Attestation The scribe's documentation has been prepared under my direction and personally reviewed by me in its entirety. I confirm that the note above accurately reflects all work, treatment, procedures, and medical decision making performed by me. Departure Information Dispostion Home / Self-Care Prescriptions Prednisone (Prednisone) 20 Mg Tab 0 PO DAILY, #18 TAB 3 DAILY FOR 3 DAYS, THEN 2 DAILY FOR 3 DAYS, THEN 1 DAILY FOR 3 DAYS. Prov: Bong Cabral M.D. 10/14/17 Referrals No Doctor, Assigned (PCP) Forms HOME CARE DOCUMENTATION FORM, IMPORTANT VISIT INFORMATION, WORK / SCHOOL INSTRUCTIONS Patient Instructions My [facility] Additional Instructions continue the augmentin stay well hydrated add prednisone taper as directed see jolynn bell this week return if worsening lab testing and imaging was all ok today Problem Qualifiers
[2017-10-14] MEDS ORDERED: PHEN-876 PO (17:54)
[2017-10-14] MEDS ORDERED: IBUP-1050 PO (17:54)
[2017-10-14] MEDS ORDERED: PHEN95TA10 PO (17:54)
[2017-10-14] MEDS ORDERED: AMOX875T PO (17:54)
[2017-10-14 17:56] LABS: BASO % 0.5 %; BASO ABS # 0.03 K/uL (0-0.2); COMPLETE YES; EOS % 4.5 %; HEMATOCRIT 39.3 % (37-47); IG% 0.2 %; LYMPH % 37.3 %; LYMPH ABS # 2.17 K/uL (1.2-3.4); MEAN CORPUSCULAR HEMOGLOBIN 30.3 pg (25-34); MEAN CORPUSCULAR HGB CONC 33.3 g/dl (32-36); MEAN PLATELET VOLUME 10.1 fL (7.4-10.4); MONO % 7.9 %; NEUT % 49.6 %; PLATELET COUNT 275 K/uL (130-400); RED BLOOD COUNT 4.32 M/uL (4.2-5.4); WHITE BLOOD COUNT 5.82 K/uL (4.8-10.8)
[2017-10-14] MEDS ORDERED: DIPH25CA5 PO (17:56)
[2017-10-14 18:14] LABS: BUN/CREATININE RATIO 22.8 (10-20); CALCIUM 9.7 mg/dl (8.5-10.1); CREATININE 1.09 mg/dl (0.60-1.20); POTASSIUM 3.8 mmol/L (3.5-5.1)
[2017-10-14 18:17] LABS: ALB/GLOB RATIO 0.9 (0.9-2)
--- NOTE | 2017-10-14 18:19 | DIAGNOSTIC IMAGING REPORT ---
HEAD CT NONCONTRAST CT DOSE: 537.48 mGy.cm HISTORY: Headache. Evaluate for hemorrhage or pathology TECHNIQUE: Multiaxial CT images of the head were performed without the use of intravenous contrast. Automated exposure control was utilized for this study. A dose lowering technique was utilized adhering to the principles of ALARA. Comparison: Head CT 11/17/2015. Findings: The paranasal sinuses and mastoid air cells are clear. The calvarium and skull base are intact. The ventricles and sulci are within normal limits. There is no mass, hematoma, midline shift, or acute infarct. Impression: No acute intracranial abnormality. Electronically signed by: Brandon South M.D. 10/14/2017 6:17 PM Dictated Date/Time: 10/14/2017 6:08 PM
[2017-10-14 18:37] VITALS: TEMP 36.9
[2017-10-14 18:44] LABS: LYME DISEASE AB IGG NEG (NEG); LYME DISEASE AB IGM NEG (NEG)
[2017-10-14 18:53] LABS: MANUAL MICROSCOPIC REQUIRED? NO; REVIEW REQ? NO; URINE APPEARANCE CLEAR (CLEAR); URINE BILIRUBIN NEG (NEG); URINE COLOR YELLOW; URINE EPITHELIAL CELL AUTO 0-5 /lpf (0-5); URINE NITRITE NEG (NEG); URINE PH 5.5 (4.5-7.5); URINE SPECIFIC GRAVITY 1.015 (1.000-1.030); UROBILINOGEN NEG (NEG); ZZUR CULT IF INDIC CLEAN CATCH NO
[2017-10-14] MEDS ORDERED: PRED20TA PO (19:31)
[2017-10-14 20:02] VITALS: BP 146/69; PULSE 73; O2SAT 95
== END 2017-10-14 20:03 | disposition home or self-care (01) ==
LOC: C.EDB 17:06 → C.EDA 20:03
DX: J32.9 Chronic sinusitis, unspecified (principal); R51 Headache; K21.9 Gastro-esophageal reflux disease without esophagitis; E78.5 Hyperlipidemia, unspecified; Z79.899 Other long term (current) drug therapy

== ENCOUNTER → 2017-11-05 | Outpatient (CLI) | payer OTHER ==
[~2017-11-05] MED LIST changes: +DIPH25CA5 PO; +IBUP-1050 PO; +PHEN95TA10 PO; +PRED20TA PO
[2017-11-05 12:23] LABS: BASO % 0.5 %; BASO ABS # 0.04 K/uL (0-0.2); COMPLETE YES; EOS % 3.8 %; HEMATOCRIT 37.7 % (37-47); IG% 0.3 %; LYMPH % 27.5 %; MEAN CELL VOLUME 93.1 fL (80-100); MEAN CORPUSCULAR HEMOGLOBIN 30.6 pg (25-34); MEAN CORPUSCULAR HGB CONC 32.9 g/dl (32-36); MEAN PLATELET VOLUME 10.5 fL (7.4-10.4); MONO % 8.8 %; NEUT % 59.1 %; PLATELET COUNT 232 K/uL (130-400); RED BLOOD COUNT 4.05 M/uL (4.2-5.4); WHITE BLOOD COUNT 7.64 K/uL (4.8-10.8)
[2017-11-05 12:34] LABS: PROTHROMBIN TIME (PATIENT) 10.5 SECONDS (9.0-12.0)
[2017-11-05 12:41] LABS: URINE APPEARANCE CLEAR (CLEAR); URINE BILIRUBIN NEG (NEG); URINE COLOR YELLOW; URINE NITRITE NEG (NEG); URINE SPECIFIC GRAVITY 1.015 (1.000-1.030); UROBILINOGEN NEG (NEG)
[2017-11-05 12:56] LABS: MANUAL MICROSCOPIC REQUIRED? NO; REVIEW REQ? NO
[2017-11-05 13:16] LABS: BLOOD UREA NITROGEN 25 mg/dl (7-18); BUN/CREATININE RATIO 37.9 (10-20); CALCIUM 9.7 mg/dl (8.5-10.1); CARBON DIOXIDE 26 mmol/L (21-32); CHLORIDE 101 mmol/L (98-107); CREATININE 0.66 mg/dl (0.60-1.20); GLUCOSE 102 mg/dl (70-99); SODIUM 134 mmol/L (136-145)
== END | disposition home or self-care (01) ==
LOC: C.LAB1850 11:21
PROVIDERS: ATTEND Physician Assistant
DX: M25.861 Other specified joint disorders, right knee (principal); Z01.818 Encounter for other preprocedural examination

== ENCOUNTER 2017-11-28 04:51 | Inpatient (IN) | payer OTHER ==
[2017-10-11 08:43] VITALS: BMI 28.0
--- NOTE | 2017-11-21 18:29 | HISTORY & PHYSICAL EXAMINATION ---
DATE OF ADMISSION: 11/28/2017 PREOPERATIVE HISTORY AND PHYSICAL CHIEF COMPLAINT: Right knee pain. HISTORY OF PRESENT ILLNESS: This 72-year-old white female presents to the office with complaints of right knee pain that had been ongoing for several years. The right knee has become worse over the last year and a half. Pain is primarily medial. She has tried oral pain medications as well as activity modification without success. No catching or locking. Pain is worse with ambulation. It is also worse with weightbearing. Pain is affecting her ADLs. Occasional night pain. No recent effusions. No numbness or tingling. X-rays have been obtained. She was previously scheduled for surgery on 08/15/2017 as well as previously on May 09 and prior to that in February. Different circumstances were required postponement. She elects to proceed with surgical intervention in hopes of alleviating her right knee pain. PAST MEDICAL HISTORY: Significant for history of asthma, bipolar disorder, osteoarthritis, stress cardiomyopathy, GERD, dyslipidemia, and chronic left bundle branch block. PREVIOUS SURGERIES: Bunionectomy and stapedectomy. ALLERGIES: NKDA. CURRENT MEDICATIONS: Lamictal 150 mg daily and Zoloft 25 mg daily. FAMILY HISTORY: Noncontributory. SOCIAL HISTORY: The patient is . Retired. No tobacco use, no ETOH use. REVIEW OF SYSTEMS: Significant for above-stated conditions, otherwise unremarkable. PHYSICAL EXAMINATION: GENERAL: Well-developed, well-nourished elderly white female in no acute distress. Sitting on a bed. Alert and oriented. SKIN: Warm and dry with good turgor. No rashes or lesions. No ecchymosis or erythema. No intraarticular effusion. HEENT: Normocephalic, atraumatic. EYES: PERRLA, EOMI. Nares patent bilaterally without turbinate enlargement. Oropharynx without erythema or exudate. No lesions noted. Uvula midline. Oral mucosa moist. HEART: RRR. No MGR. LUNGS: Clear to auscultation bilaterally. No crackles, rhonchi or wheezing. Good air movement. ABDOMEN: Bowel sounds present x4, soft, nontender. No organomegaly. MUSCULOSKELETAL: Right knee has no intraarticular effusion. She continues to lack approximately 5 degrees of terminal extension. Flexion to greater than 110 degrees. Strength is 5/5 with good quad tone. No defect in the patellar tendon or quadriceps tendon. Stable collateral ligaments. She has focal discomfort with palpation over the medial aspect of the knee. Mild discomfort with palpation over the lateral joint line as well. Varus alignment. Crepitus is palpable with motion. NEUROLOGIC: Cranial nerves II through XII are intact. Gross sensation is intact across the lower extremities by soft touch. Peripheral pulses are 2+. DATA: Radiographic imaging previously obtained shows varus alignment and end-stage DJD. Periarticular osteophytes, subchondral sclerosis, and joint space narrowing are all present. IMPRESSION: Right knee end-stage degenerative joint disease. PLAN: Informed written consent for right total knee arthroplasty will be obtained on the day of surgery. Postoperative prescriptions for Percocet and Coumadin will be provided at discharge from the hospital. Anticipate discharge to home with home health services for 2 weeks and then outpatient PT. Preoperative lab work, EKG, and chest x-ray have been updated. Medical clearance has been obtained from Dr. Lopez. The patient already has a walker.
[~2017-11-28] VITALS: Ht 157.5 cm; Wt 70.9 kg
[2017-11-28] VITALS (9 sets, daily range): BP systolic 116–139; BP diastolic 57–76; PULSE 75–100; TEMP 36.2–36.9; O2SAT 94–98; Ht 157.5 cm; Wt 70.9 kg
[~2017-11-28 04:51] MED LIST changes: +AMLO2.5T PO; -AMOX875T PO; +AZEL0.1S2 NAE; +CLON0.5T3 PO; -DIPH25CA5 PO; +METO-478 PO; -PHEN-876 PO; -PHEN95TA10 PO; -PRED20TA PO; +SERT1TAB72 PO
[2017-11-28] MEDS ORDERED: CEFAZOLIN 2000MG IV PUSH 10 ML IV SCH (06:00)
[2017-11-28] MEDS ORDERED: ROPIVACAINE 5MG/ML 30 ML 150 MG, BUPIVACAINE/EPINEPHR 0.5% MPF 30 ML, KETOROLAC TROMETH... INFIL SCH ×7 (06:00)
[2017-11-28] MEDS ORDERED: TRANEXAMIC ACID INJ 1,000 MG in SYRINGE 0 ML IV SCH (06:00)
[2017-11-28] MEDS ORDERED: LACTATED RINGER'S 1000ML 500 ML IV SCH (06:00)
[2017-11-28] MEDS ORDERED: LACTATED RINGER'S 1000ML IV SCH (06:00)
[2017-11-28] MEDS ORDERED: LACTATED RINGER'S 1000ML 1,000 ML IV SCH (06:00)
[2017-11-28] MEDS ORDERED: BUPIVACAINE/EPINEPHRINE 0.25% 1:200,000 30 ML VIAL ONE (06:06)
[2017-11-28] MEDS ORDERED: BUPIVACAINE 0.5 % 5 MG/1 ML PF 10ML VIAL ONE (06:07)
[2017-11-28] MEDS ORDERED: PROPOFOL IV EMULSION 10 MG/ML 20 ML VIAL IV ONE (06:18)
[2017-11-28] MEDS ORDERED: LIDOCAINE HCL 2% 2 ML VIAL (20MG/ML) ONE (06:18)
[2017-11-28] MEDS ORDERED: FENTANYL CITRATE INJ 50 MCG/1 ML 2 ML VIAL ONE (06:19)
[2017-11-28] MEDS ORDERED: MIDAZOLAM HCL 1 MG/ML 2ML VIAL ONE ×2 (06:19→07:08)
[2017-11-28] MEDS ORDERED: ONDANSETRON INJ 2 MG/ML 2 ML VIAL ONE (06:20)
[2017-11-28] MEDS ORDERED: POVIDONE-IODINE OP SOLN 30 ML BTL ONE (06:26)
[2017-11-28] MEDS ORDERED: ORTHO JOINT ANESTHETIC ONE (06:26)
--- NOTE | 2017-11-28 06:28 | History & Physical Bridge Note ---
H&P Re-Evaluation Bridge Note: I have examined the patient, reviewed the History & Physical and in the interval since the performance of the History & Physical I have noted the following changes of clinical significance: consent obtained.No changes noted
[2017-11-28] MEDS ORDERED: EpHEDrine SULFATE INJ 50 MG/ML AMP ONE (06:30)
[2017-11-28] MEDS ORDERED: ATROPINE SULFATE 0.1 MG/ML 5ML SYR IV PRN (07:15)
[2017-11-28] MEDS ORDERED: EpHEDrine SULFATE INJ 50 MG/ML AMP IV PRN (07:15)
[2017-11-28] MEDS ORDERED: ONDANSETRON INJ 2 MG/ML 2 ML VIAL IV PRN ×2 (07:15→08:30)
[2017-11-28] MEDS ORDERED: FENTANYL CITRATE INJ 50 MCG/1 ML 2 ML VIAL IV PRN (07:15)
[2017-11-28] MEDS ORDERED: PHENYLEPHRINE 100MCG/ML 5ML SYR IV PRN (07:15)
[2017-11-28] MEDS ORDERED: FLUMAZENIL 0.1 MG/1 ML 10 ML VIAL IV PRN (07:15)
[2017-11-28] MEDS ORDERED: LABETALOL HCL IV 5 MG/ML 20ML IV PRN (07:15)
[2017-11-28] MEDS ORDERED: MEPERIDINE HCL 25 MG/ML CARP IV PRN (07:15)
[2017-11-28] MEDS ORDERED: HYDROmorphone INJ 2 MG/ML SYR/VIAL IV PRN (07:15)
[2017-11-28] MEDS ORDERED: NALOXONE HCL 0.4 MG/1 ML VIAL/CARP IV PRN (07:15)
--- NOTE | 2017-11-28 08:22 | [facility] Post Operative Brief Note ---
Immediate Operative Summary Operative Date Nov 28, 2017. Pre-Operative Diagnosis Right Knee End-Stage Degenerative Joint Disease Post-Operative Diagnosis Right Knee End-Stage Degenerative Joint Disease Procedure(s) Performed Right Total Knee Arthroplasty Surgeon Dr. Santos Deputy Court Clerk Surgeon(s) MENDEZ Alonso Estimated Blood Loss 25 ml Findings severe djd/varus and flexion deformity Fluids (cc crystalloids) 1100cc Specimens A. Right Knee Bone and Tissue Drains none Anesthesia spinal/block Complication(s) None Disposition Recovery Room / PACU
[2017-11-28] MEDS ORDERED: SOD PHOSPHATE/SOD BIPHOSPHATE ENEMA 132 ML BTL PR PRN (08:30)
[2017-11-28] MEDS ORDERED: MoRPHine SULFATE 2 MG/ML CARP IV PRN (08:30)
[2017-11-28] MEDS ORDERED: CEFAZOLIN IV 2,000 MG in DEXTROSE 5% 50ML 50 ML IV SCH (08:30)
[2017-11-28] MEDS ORDERED: ACETAMINOPHEN 325 MG TAB PO PRN (08:30)
[2017-11-28] MEDS ORDERED: MAGNESIUM HYDROXIDE SUSP 30 ML UDC PO PRN (08:30)
[2017-11-28] MEDS ORDERED: BISACODYL 10 MG SUPP PR PRN (08:30)
[2017-11-28] MEDS ORDERED: METOCLOPRAMIDE HCL INJ 5 MG/ML 2 ML VIAL IV PRN (08:30)
--- NOTE | 2017-11-28 08:37 | [facility] Operative Report ---
Operative Report Operative Date Nov 28, 2017. Pre-Operative Diagnosis Right Knee End-Stage Degenerative Joint Disease Post-Operative Diagnosis Right Knee End-Stage Degenerative Joint Disease Procedure(s) Performed Right Total Knee Arthroplasty Surgeon Dr. Santos [employer] Surgeon(s) MENDEZ Alonso Estimated Blood Loss 25 ml Findings DJD right knee Fluids 1100cc Specimens A. Right Knee Bone and Tissue Drains none Anesthesia spinal/block Complication(s) None Disposition Recovery Room / PACU Indications Patient is a 72-year-old female who has been seen in our office for many years for right knee pain. Her pain is progressively worsened. It interferes daily with her routine activities. She is failed conservative treatment which has consisted of corticosteroid injections, viscous supplementation, and physical therapy. Surgical intervention was discussed and she wished to proceed with surgery. Risks and complications were discussed. Informed consent was obtained. Description of Procedure Patient was taken to the operating room and placed under spinal anesthesia. She was given a peripheral nerve block of her right knee. Timeout was performed. She was given 2 g of IV Ancef for surgical prophylaxis. I was present during the entire case, please see Dr. Santos's operative report for further detail. Patient was awakened and transferred to the recovery room in stable condition. I attest to the content of the Intraoperative Record and any orders documented therein. Any exceptions are noted below.
--- NOTE | 2017-11-28 08:41 | OPERATIVE REPORT ---
DATE OF OPERATION: 11/28/2017 SURGEON: Sukumar Santos MD. INTERNATIONAL RECRUITER: Cammie Huff PA-C, no resident or fellow available. PREOPERATIVE DIAGNOSIS: Severe osteoarthritis with varus and flexion deformity, right knee. POSTOPERATIVE DIAGNOSIS: Same. OPERATION PERFORMED: Cemented right total knee replacement. PERIOPERATIVE SITUATION: Medically cleared female with intractable knee pain with x-rays revealing severe disease, varus and flexion deformity, significant joint space narrowing, tibial minor subluxation who has intractable pain and has failed conservative management over years. At this point in time wants to proceed and is requesting surgical treatment for total knee replacement. Options were discussed including continued nonoperative management. Consent obtained. Please see list. DESCRIPTION OF PROCEDURE: The patient appropriately identified, site verified, consent verified, 2 grams of Ancef confirmed as being given. The right lower extremity was prepped and draped in usual routine fashion. Midline exposure was utilized. Total tourniquet time was 44 minutes. Parapatellar arthrotomy performed. Appropriate soft tissue releases and synovectomy completed, osteophytes resected. Distal femur entered. Distal femur resected 14 mm due to the flexion deformity of about 8 degrees. The proximal tibia was then resected 4 mm. The extension gap was excellent. The femur was sized between a 3 and a 2-1/2, it was measured 3, cut 2.5. There was no notching. The flexion gap was then checked. It was excellent. The posterior capsule was then injected with the Orthomix. The box cut was then made and the 2.5 trial fit well. The tibia was then sized to 2.5, appropriate block was applied. Broaching and reaming care carried out and the 2.5 trial fit well. The patella tracked well. The patella was sized to a 38, it was resected leaving 15 mm, drill holes made and the trial tracked well. The wound was then copiously irrigated and injected with the Orthomix. All trial implants then removed, irrigated with Betadine, irrigated with Pulsavac and permanent cemented into position. After 12 minutes, the tourniquet was deflated. After additional 2 minutes, the knee was flexed. No major bleeding was encountered. Estimated blood loss was 25 mL or less. The wound was irrigated with Betadine, Pulsavac, and the permanent liner seated and then the knee reduced and closed with #1 Ethibond, #1 Vicryl, 2-0 Vicryl and stainless steel clips. SUMMARY OF IMPLANTS: Size 2.5 posterior cruciate substituting femur right, size 2.5 rotating platform tray, oval domed 3 pegged patella size 38, tibial insert 2.5, posterior cruciate stabilized rotating platform 10 mm thick, 2 bags of Palacos G cement. ESTIMATED BLOOD LOSS: 25 mL or less. CRYSTALLOID: 1100 mL. PATHOLOGY: Pending on bone removed. DVT prophylaxis with Coumadin. I attest to the content of the Intraoperative Record and any orders documented therein. Any exception s are noted below.
--- NOTE | 2017-11-28 09:30 | DIAGNOSTIC IMAGING REPORT ---
R KNEE 1 OR 2 VIEWS ROUTINE CLINICAL HISTORY: AP/LATERAL IN PACU RIGHT KNEE joint replacement COMPARISON: None. DISCUSSION: Anatomic alignment status post total right knee arthroplasty. Good contact during prosthetic and underlying bone. Expected soft tissue postoperative change IMPRESSION: Anatomic alignment status post right knee arthroplasty. The above report was generated using voice recognition software. It may contain grammatical, syntax or spelling errors. Electronically signed by: Wilber Phillips M.D. 11/28/2017 9:28 AM Dictated Date/Time: 11/28/2017 9:28 AM
--- NOTE | 2017-11-28 09:30 | Anesthesiology Progress Note ---
Anesthesia Post Op Note Date & Time Nov 28, 2017 at 09:30 Vital Signs Pain Intensity: 0 Vital Signs Past 12 Hours Date Time Temp Pulse Resp B/P (MAP) Pulse Ox O2 Delivery O2 Flow Rate FiO2 11/28/17 09:20 87 20 106/53 99 Nasal Cannula 2 11/28/17 09:05 36.7 80 14 120/57 98 Nasal Cannula 2 11/28/17 08:55 85 20 106/60 100 Nasal Cannula 2 11/28/17 08:45 86 20 110/62 100 Nasal Cannula 2 11/28/17 08:35 84 12 110/56 100 Nasal Cannula 2 11/28/17 08:25 36.8 79 20 118/55 97 Nasal Cannula 2 11/28/17 05:47 36.6 77 20 139/76 94 Room Air Notes Mental Status: alert / awake / arousable, participated in evaluation Pt Amnestic to Procedure: Yes Nausea / Vomiting: adequately controlled Pain: adequately controlled Airway Patency, RR, SpO2: stable & adequate BP & HR: stable & adequate Hydration State: stable & adequate Neuraxial Anesthesia: was administered, sensory block is resolving Anesthetic Complications: no major complications apparent
[2017-11-28] MEDS ORDERED: ACETAMINOPHEN IV 100 ML IV PRN (10:45)
[2017-11-28] MEDS ORDERED: D5W AND 1/2NSS + 20MEQ KCL 1,000 ML IV SCH (11:00)
--- NOTE | 2017-11-28 12:48 | Discharge Instructions ---
Discharge Instructions Date of Service Nov 28, 2017. Admission Reason for Admission: Right Knee Degenerative Joint Disease Discharge Discharge Diagnosis / Problem: Degenerative joint disease right knee Discharge Goals Goal(s): Decrease discomfort, Improve function, Increase independence Activity Recommendations Activity Limitations: per Instructions/Follow-up section Weightbearing Status: Right weightbearing (as tolerated) . Instructions / Follow-Up Instructions / Follow-Up New Medicine: * You will likely be taking one or more of these medications: 1. Percocet - Take, as directed, when you need it, every four to six hours to control your pain. 2. Iron Sulfate - Take three times each day for the month after surgery to help you replace the blood lost during surgery. 3. Coumadin - Thins your blood to lessen the chance of forming a blood clot. The dose of this is different for each person and is based on your blood tests that are done twice a week. * The most common side effects of pain medicine and iron are nausea and constipation. If nausea or constipation is too much of a problem or if you have any questions about your new medicines or doses, call [facility] at . We will try to help you manage these issues. VERY IMPORTANT TO READ AND REVIEW" Blood Clots and Blood Thinning Medicine: * You are given Coumadin during the immediate post-operative period to lessen the risk of blood clots forming in your legs and/or lungs. Coumadin is usually given for six weeks after surgery. * The prescription is for 2 mg tablets. At discharge, you should understand your dose and take it all at the same time every day, preferably after dinner. * You need to get your blood checked 1 - 2 times per week for six weeks or as directed. * If your dose needs to change, we will call you. Do not take your medication on the day of the blood test until we call you. Pain: * The immediate post-operative period after knee replacement surgery is often quite painful. * You are given a prescription for pain medicine. You should take it, as directed, when you need it, especially before physical therapy and before going to bed. Pain that interferes with sleep is very common and can last several months. * You will likely need pain medicine for the first four to six weeks. It will not stop all of the pain. The pain will lessen and as you feel better, you may change to milder pain medicine such as Tylenol. * The most common side effects of pain medicine are nausea and constipation, so don't take more than you need. Physical Therapy: * You will have physical therapy two or three times each week for four to six weeks after your surgery in order to regain your knee range of motion and to retrain your knee to work properly. * It is just as important to make sure you are getting your knee perfectly straight as it is to regain your knee bend. * Taking a pain pill an hour before therapy can help you have a more productive and comfortable therapy session if needed. Home Exercise: * You were shown a series of exercises (heel props, heel slides, etc.) in the hospital. Do these exercises three to four times each day including the exercises you were shown in physical therapy. Walking: * Get up and walk several times each day. For the first four weeks, try not to stand or walk for more than one hour at a time. If you do stand or walk for more than one hour, you will not hurt anything, but your knee and leg will likely swell. * As you feel comfortable, you may change from the walker or crutches to a cane and then to independent walking. SELF CARE INSTRUCTIONS AFTER TOTAL KNEE REPLACEMENT A. You may need to continue a physical therapy program after discharge from the hospital. There are several options available to you. Your doctor will assist you in selecting the best one for you. 1. An out-patient facility 2 to 3 times a week for therapy or home therapy. 2. Continue working on all exercises taught to you in the hospital. Your goals should be to increase bending of your knee to 90 degrees and beyond and to fully straighten your knee. B. You may progress at your own pace from walking with a walker or crutches to a cane; then to no assistive devices. C. Make walking a part of your daily routine. Be up as much as comfortable with rest periods throughout the day. Rest with leg elevation is very important. Use the ice wrap frequently for the first 3-4 weeks. D. There are no restrictions on activities. You may ride in a car, shop, participate in information systems project manager and all social activities. E. Wear the long elastic stockings (BOO hose) 20 hours a day for six weeks after surgery. They can be removed several times a day for laundering and for a shower. F. Do not place a pillow behind your knee when resting. A pillow at your ankle is okay. VERY IMPORTANT TO READ AND REVIEW A. Take Coumadin, Aspirin or Lovenox (blood thinning medications) as directed by your doctor. If on Coumadin, have a pro-time (blood test) drawn according to your doctor's instructions. This will tell the doctor how well the Coumadin is thinning your blood. 1. YOU WILL BE GIVEN AN ORDER AT DISCHARGE FOR PT/INR (BLOOD WORK). PLEASE HAVE THIS DONE INSTRUCTED. PLEASE CALL OUR OFFICE AFTER YOUR BLOODWORK IS COMPLETE SO WE CAN TRACK YOUR RESULTS. IF YOU ARE GOING TO OUTPATIENT PHYSICAL THERAPY, YOU WILL NEED TO GO TO OUTPATIENT TESTING TO HAVE IT DRAWN. B. There are a few signs you need to watch for after you are home. Call [facility] if you notice any of the followin. Increased severe knee pain. Some pain is expected especially when you exercise. 2. Increased swelling in your leg or knee; pain or swelling of the calf muscle in either lower leg. 3. Any fluid drainage from the incision. 4. Shortness of breath or chest pain. C. Please call [facility] at if you have any concerns or questions about your operation or recovery. The doctor or his nurse will return your call promptly. D. You must take antibiotics before dental work, bladder, bowel or other surgery. Call the office to obtain a prescription at least 2 days prior to your appointment. * CALL IF INCREASED PAIN, REDNESS, DRAINAGE OR FEVER GREATER THAT 101. * Sutures should be removed 12-14 days after surgery unless you are on chronic steriods, then it will be 14-18 days after surgery. Call your doctor if: * Temperature above 101 degrees F. * Pain not relieved by pain medicine ordered. * Increased drainage or redness from incision. * Notify your doctor with any questions or concerns. Follow-up: You have a follow-up appointment scheduled on December 13, 2017 at 2:[address] [facility] Diet Patient's current hospital diet: Regular Diet Discharge Diet Recommended Diet: Regular Diet Procedures Procedures Performed: Right Total Knee Arthroplasty Pending Studies Studies pending at discharge: no Medical Emergencies . Who to Call and When: Medical Emergencies: If at any time you feel your situation is an emergency, please call 911 immediately. . Non-Emergent Contact Non-Emergency issues call your: Surgeon Call Non-Emergent contact if: temperature is above 101, your pain is not controlled, your pain is worsening, your pain is unusual for you, your pain is concerning you, wound has increased drainage, wound has increased redness, wound has increased pain, you have any medication questions . "Provider Documentation" section prepared by Cammie Huff. . VTE Core Measure Inpt VTE Proph given/why not?: Warfarin (Coumadin) (6 weeks postop), [place] Drug Monitoring Program Search Results: patient reviewed within database, no issues identified
[2017-11-28] MEDS: CLONAZEPAM 0.5 MG TAB PO SCH ×2 (13:31→21:50)
[2017-11-28] MEDS: CEFAZOLIN IV 1,000 MG in SYRINGE 0 ML IV SCH ×2 (14:17→22:01)
[2017-11-28] MEDS: KETOROLAC TROMETHAMINE 15 MG/ML VIAL IV. PRN ×2 (15:28→23:59)
[2017-11-28] MEDS ORDERED: AZELASTINE~ORDER AWAITING ACTION SCH (16:00)
[2017-11-28] MEDS ORDERED: WARFARIN SOD 5 MG TAB PO SCH (16:00)
[2017-11-28] MEDS ORDERED: TRANEXAMIC ACID INJ 1,000 MG in SODIUM CHLORIDE 0.9% 100ML 100 ML IV SCH (16:00)
--- NOTE | 2017-11-28 16:50 | PROGRESS NOTE ---
DATE: 11/28/2017 SUBJECTIVE: Postop check. At this point in time, the patient is doing well. She denies any nausea, vomiting, chest pain, shortness of breath, fever or chills. She is status post right total knee replacement. She has been up out of bed. She has avoided. OBJECTIVE: Vital signs again are stable. She is afebrile. Wound dressing clean, dry and intact. Can do straight leg raise and flex knee easily to 60 degrees. Neurovascular check distally is normal. Calf is nontender. IMAGING DATA: Postop x-rays look excellent. ASSESSMENT AND PLAN: Doing well. Continue with care pathway. Potential transfer to [facility] or discharge tomorrow.
[2017-11-28] MEDS ORDERED: AMLODIPINE BESYLATE 5 MG TAB PO SCH (21:00)
[2017-11-28] MEDS: AZELASTINE HCL 0.1 % NASAL SPRAY SCH (21:00)
[2017-11-28] MEDS ORDERED: SERTRALINE HCL 50 MG TAB PO SCH (21:00)
[2017-11-28] MEDS: DOCUSATE SODIUM 100 MG CAP PO SCH (21:50)
[2017-11-28] MEDS: GABAPENTIN 300 MG CAP PO SCH (21:52)
[2017-11-28] MEDS: OXYCODONE HCL IR 5 MG TAB (IMMEDIATE RELEASE) PO PRN (22:40)
[2017-11-29 04:00] VITALS: BP 118/64; PULSE 76; TEMP 36.5; O2SAT 96
[2017-11-29 05:42] LABS: HEMATOCRIT 29.5 % (37-47); HEMOGLOBIN 9.7 g/dL (12.0-16.0); MEAN CELL VOLUME 93.4 fL (80-100); MEAN CORPUSCULAR HEMOGLOBIN 30.7 pg (25-34); MEAN CORPUSCULAR HGB CONC 32.9 g/dl (32-36); MEAN PLATELET VOLUME 9.6 fL (7.4-10.4); PLATELET COUNT 203 K/uL (130-400); RED CELL DISTRIBUTION WIDTH CV 13.5 % (11.5-14.5); RED CELL DISTRIBUTION WIDTH SD 46.6 fL (36.4-46.3); WHITE BLOOD COUNT 10.47 K/uL (4.8-10.8)
[2017-11-29 06:18] LABS: CALCIUM 8.7 mg/dl (8.5-10.1); CREATININE 0.79 mg/dl (0.60-1.20); POTASSIUM 4.4 mmol/L (3.5-5.1)
--- NOTE | 2017-11-29 06:22 | PROGRESS NOTE ---
DATE: 11/29/2017 SUBJECTIVE: Postop day #1 status post right total knee replacement. The patient had a reasonable night, has no major issues about the most night. Vital signs are stable. She is afebrile. Denies chest pain, shortness of breath, fever, chills, nausea, vomiting or headache. OBJECTIVE: Vital signs are stable. Calves nontender. DITCHER, femoral sciatic nerve is normal. Can do a straight leg raise with some lag. Abdomen soft, nontender. Calves nontender. LABORATORY DATA: Hematocrit stable at 29.5, INR 1.0. Electrolytes pending. ASSESSMENT: Doing well. Discharge on 4 mg of Coumadin, NO LOVENOX. Keep INR at 1.8-2.2. Mobilize. Discontinue knee immobilizer this morning. Does not need it after that. Keep knee range of motion 0-90 degrees for the first 2 weeks.
--- NOTE | 2017-11-29 06:26 | DISCHARGE SUMMARY ---
CHIEF COMPLAINT: Right knee pain. HISTORY OF PRESENT ILLNESS: This is a 72-year-old female who underwent elective right total knee replacement. Her hospital course has been uneventful. PAST MEDICAL HISTORY: Remarkable for asthma, bipolar disorder, osteoarthritis, stress, cardiomyopathy, GERD, dyslipidemia and chronic left bundle branch block. PAST SURGICAL HISTORY: Include bunionectomy and stapedectomy. ALLERGIES: None. PREADMISSION MEDICATIONS: Include Lamictal 150 mg daily and Zoloft 25 mg daily. She will continue those and will be discharged on Coumadin 4 mg to keep INR 1.8-2.2. Please do not use Lovenox. FAMILY HISTORY: Remarkable for nothing. SOCIAL HISTORY: Reveals she is , retired. No tobacco or alcohol use. REVIEW OF SYSTEMS: Noncontributory. Denies chest pain, shortness of breath, fever, chills, nausea, vomiting or headache. PHYSICAL EXAMINATION: Reveals femoral sciatic nerve to be intact. Wound dressing clean, dry and intact. Calves, nontender. Abdomen, nontender. Tolerated the medication well. Postop x-rays look good. ASSESSMENT: Overall, doing well. Discharge/transfer to [facility] today. Discharge on 4 mg of Coumadin. Keep INR 1.8-2.2. Do not use Lovenox. Do not push knee flexion beyond 90 degrees for the first 2 weeks.
[2017-11-29] MEDS: OXYCODONE HCL IR 5 MG TAB (IMMEDIATE RELEASE) PO PRN (06:44)
[2017-11-29 07:11] VITALS: BP 106/61; PULSE 72; TEMP 36.9; O2SAT 97
[2017-11-29] MEDS ORDERED: DEXAMETHASONE INJ 10 MG in SYRINGE 0 ML IV ONE (07:30)
[2017-11-29] MEDS ORDERED: OXYC-57 PO (07:59)
[2017-11-29] MEDS ORDERED: WARF2TAB PO (07:59)
[2017-11-29] MEDS ORDERED: MULT-890 PO (07:59)
[2017-11-29] MEDS ORDERED: CLC100 PO (07:59)
--- NOTE | 2017-11-29 08:02 | Discharge Instructions ---
Discharge Instructions Date of Service Nov 29, 2017. Admission Reason for Admission: Right Knee Degenerative Joint Disease Discharge Discharge Diagnosis / Problem: Right knee DJD Discharge Goals Goal(s): Decrease discomfort, Improve function, Increase independence Activity Recommendations Activity Level: Assistance Required (walker) Therapies: Physical Therapy, Weight Bearing Status (WBAT RLE) Weightbearing Status: Right weightbearing (as tolerated) . Additional Information Patient informed of condition: Yes Advance Directives: No DNR: No Level of Care: Acute Rehab Communicable Disease: No Prognosis: Stable Nash Catheter: No Instructions / Follow-Up Instructions / Follow-Up New Medicine: * You will likely be taking one or more of these medications: 1. Percocet - Take, as directed, when you need it, every four to six hours to control your pain. 2. Iron Sulfate - Take three times each day for the month after surgery to help you replace the blood lost during surgery. 3. Coumadin - Thins your blood to lessen the chance of forming a blood clot. The dose of this is different for each person and is based on your blood tests that are done twice a week. * The most common side effects of pain medicine and iron are nausea and constipation. If nausea or constipation is too much of a problem or if you have any questions about your new medicines or doses, call [facility] at . We will try to help you manage these issues. VERY IMPORTANT TO READ AND REVIEW" Blood Clots and Blood Thinning Medicine: * You are given Coumadin during the immediate post-operative period to lessen the risk of blood clots forming in your legs and/or lungs. Coumadin is usually given for six weeks after surgery. * The prescription is for 2 mg tablets. At discharge, you should understand your dose and take it all at the same time every day, preferably after dinner. * You need to get your blood checked 1 - 2 times per week for six weeks or as directed. * If your dose needs to change, we will call you. Do not take your medication on the day of the blood test until we call you. Pain: * The immediate post-operative period after knee replacement surgery is often quite painful. * You are given a prescription for pain medicine. You should take it, as directed, when you need it, especially before physical therapy and before going to bed. Pain that interferes with sleep is very common and can last several months. * You will likely need pain medicine for the first four to six weeks. It will not stop all of the pain. The pain will lessen and as you feel better, you may change to milder pain medicine such as Tylenol. * The most common side effects of pain medicine are nausea and constipation, so don't take more than you need. Physical Therapy: * You will have physical therapy two or three times each week for four to six weeks after your surgery in order to regain your knee range of motion and to retrain your knee to work properly. * It is just as important to make sure you are getting your knee perfectly straight as it is to regain your knee bend. * Taking a pain pill an hour before therapy can help you have a more productive and comfortable therapy session if needed. Home Exercise: * You were shown a series of exercises (heel props, heel slides, etc.) in the hospital. Do these exercises three to four times each day including the exercises you were shown in physical therapy. Walking: * Get up and walk several times each day. For the first four weeks, try not to stand or walk for more than one hour at a time. If you do stand or walk for more than one hour, you will not hurt anything, but your knee and leg will likely swell. * As you feel comfortable, you may change from the walker or crutches to a cane and then to independent walking. SELF CARE INSTRUCTIONS AFTER TOTAL KNEE REPLACEMENT A. You may need to continue a physical therapy program after discharge from the hospital. There are several options available to you. Your doctor will assist you in selecting the best one for you. 1. An out-patient facility 2 to 3 times a week for therapy or home therapy. 2. Continue working on all exercises taught to you in the hospital. Your goals should be to increase bending of your knee to 90 degrees and beyond and to fully straighten your knee. B. You may progress at your own pace from walking with a walker or crutches to a cane; then to no assistive devices. C. Make walking a part of your daily routine. Be up as much as comfortable with rest periods throughout the day. Rest with leg elevation is very important. Use the ice wrap frequently for the first 3-4 weeks. D. There are no restrictions on activities. You may ride in a car, shop, participate in humanities division chair and all social activities. E. Wear the long elastic stockings (BOO hose) 20 hours a day for six weeks after surgery. They can be removed several times a day for laundering and for a shower. F. Do not place a pillow behind your knee when resting. A pillow at your ankle is okay. VERY IMPORTANT TO READ AND REVIEW A. Take Coumadin, Aspirin or Lovenox (blood thinning medications) as directed by your doctor. If on Coumadin, have a pro-time (blood test) drawn according to your doctor's instructions. This will tell the doctor how well the Coumadin is thinning your blood. 1. YOU WILL BE GIVEN AN ORDER AT DISCHARGE FOR PT/INR (BLOOD WORK). PLEASE HAVE THIS DONE INSTRUCTED. PLEASE CALL OUR OFFICE AFTER YOUR BLOODWORK IS COMPLETE SO WE CAN TRACK YOUR RESULTS. IF YOU ARE GOING TO OUTPATIENT PHYSICAL THERAPY, YOU WILL NEED TO GO TO OUTPATIENT TESTING TO HAVE IT DRAWN. B. There are a few signs you need to watch for after you are home. Call [facility] if you notice any of the followin. Increased severe knee pain. Some pain is expected especially when you exercise. 2. Increased swelling in your leg or knee; pain or swelling of the calf muscle in either lower leg. 3. Any fluid drainage from the incision. 4. Shortness of breath or chest pain. C. Please call [facility] at if you have any concerns or questions about your operation or recovery. The doctor or his nurse will return your call promptly. D. You must take antibiotics before dental work, bladder, bowel or other surgery. Call the office to obtain a prescription at least 2 days prior to your appointment. * CALL IF INCREASED PAIN, REDNESS, DRAINAGE OR FEVER GREATER THAT 101. * Sutures should be removed 12-14 days after surgery unless you are on chronic steriods, then it will be 14-18 days after surgery. Call your doctor if: * Temperature above 101 degrees F. * Pain not relieved by pain medicine ordered. * Increased drainage or redness from incision. * Notify your doctor with any questions or concerns. Current Hospital Diet Patient's current hospital diet: Regular Diet Discharge Diet Recommended Diet: Regular Diet Procedures Procedures Performed: Right Total Knee Arthroplasty Pending Studies Studies pending at discharge: no Physician Orders On Transfer Dressing Changes: Change dressings daily and PRN right knee Vital Signs: per routine Additional Orders: D/C Immobilizer. No LOVENOX Keep ROM 0-90 degrees x 2 weeks post op Medical Emergencies . Who to Call and When: Medical Emergencies: If at any time you feel your situation is an emergency, please call 911 immediately. . Non-Emergent Contact Non-Emergency issues call your: Surgeon Call Non-Emergent contact if: temperature is above 101, your pain is not controlled, your pain is worsening, your pain is unusual for you, wound has increased drainage, wound has increased redness, wound has increased pain, you have any medication questions . . "Provider Documentation" section prepared by Cammie Huff. . Core Measure Problem Core Measures: VTE VTE Core Measures Date of VTE Diagnosis: Nov 29, 2017 Time of VTE Diagnosis: 08:01 Reason no anticoag overlap I/P: Treatment provided - N/A Reason no anticoag overlap @DC: Treatment provided - N/A [place] Drug Monitoring Program Search Results: patient reviewed within database, no issues identified
--- NOTE | 2017-11-29 08:30 | Orthopedic Progress Note ---
Orthopedic Progress Note Date of Service Nov 29, 2017. Subjective Post OP Day: 1 Reports: feeling well, pain controlled w PO medications, Denies: complaints, chest pain, SOB, nausea / vomiting, calf pain Objective calves soft nontender, N/V intact, capillary refill less than 2 sec., incision C /D/I, A&O x3, toes mobile dressing with light bloody serous drainage. No active drainage from incision. [place] intact. Mild edema of knee, minimal effusion. New dressings applied today Date Time Temp Pulse Resp B/P (MAP) Pulse Ox O2 Delivery O2 Flow Rate FiO2 11/29/17 07:11 36.9 72 16 106/61 (76) 97 Room Air 11/29/17 04:00 36.5 76 16 118/64 (82) 96 Room Air 11/29/17 00:00 Room Air 11/28/17 23:45 36.7 89 18 127/65 (85) 94 Room Air 11/28/17 21:45 36.9 100 18 130/72 (91) 94 Room Air 11/28/17 16:45 Room Air 11/28/17 15:03 36.3 94 18 120/74 (89) 94 Room Air 11/28/17 13:13 36.5 97 18 127/68 (87) 95 Room Air 11/28/17 11:50 36.3 87 18 123/69 (87) 98 Nasal Cannula 2.0 11/28/17 10:48 36.4 83 18 116/66 (83) 95 Nasal Cannula 2.0 11/28/17 10:20 36.2 75 16 130/72 (91) 96 Nasal Cannula 2.0 11/28/17 09:50 96 Nasal Cannula 2.0 11/28/17 09:50 36.5 87 16 124/57 (79) 98 Nasal Cannula 2.0 11/28/17 09:50 Nasal Cannula 2.0 11/28/17 09:30 84 14 127/60 98 Nasal Cannula 2 11/28/17 09:20 87 20 106/53 99 Nasal Cannula 2 11/28/17 09:05 36.7 80 14 120/57 98 Nasal Cannula 2 11/28/17 08:55 85 20 106/60 100 Nasal Cannula 2 11/28/17 08:45 86 20 110/62 100 Nasal Cannula 2 11/28/17 08:35 84 12 110/56 100 Nasal Cannula 2 Laboratory Results 24 Hours: Test 11/29/17 05:23 Hematocrit 29.5 % Hemoglobin 9.7 g/dL Prothromb Time International Ratio 1.0 Prothrombin Time 11.0 SECONDS Assessment & Plan Assessment: POD 1 - right TKA Acute blood loss anemia Plan: WBAT RLE/ OOB with walker Regular diet Coumadin for DVT prophylaxis x 6 weeks. Ice to right knee as needed for pain/swelling D/C immobilizer Discharge to [facility] Discharge instructions as provided. Follow up as scheduled. Discharge Planning Discharge Planning: rehab hospital Pain Management: Percocet DVT Prophylaxis: TEDs, Coumadin (x 6 weeks post op) Therapy: Physical Therapy, Occupational Therapy
--- NOTE | 2017-11-29 08:47 | Anesthesiology Progress Note ---
Anesthesia Post Op Note Date & Time Nov 29, 2017 at 08:46 Vital Signs Pain Intensity: 6.0 Vital Signs Past 12 Hours Date Time Temp Pulse Resp B/P (MAP) Pulse Ox O2 Delivery O2 Flow Rate FiO2 11/29/17 07:11 36.9 72 16 106/61 (76) 97 Room Air 11/29/17 04:00 36.5 76 16 118/64 (82) 96 Room Air 11/29/17 00:00 Room Air 11/28/17 23:45 36.7 89 18 127/65 (85) 94 Room Air 11/28/17 21:45 36.9 100 18 130/72 (91) 94 Room Air Notes Mental Status: alert / awake / arousable, participated in evaluation Pt Amnestic to Procedure: Yes Nausea / Vomiting: adequately controlled Pain: adequately controlled Airway Patency, RR, SpO2: stable & adequate BP & HR: stable & adequate Hydration State: stable & adequate Anesthetic Complications: no major complications apparent
[2017-11-29] MEDS: AZELASTINE HCL 0.1 % NASAL SPRAY SCH (08:51)
[2017-11-29] MEDS: GABAPENTIN 300 MG CAP PO SCH (08:51)
[2017-11-29] MEDS: DOCUSATE SODIUM 100 MG CAP PO SCH (08:52)
[2017-11-29] MEDS: CLONAZEPAM 0.5 MG TAB PO SCH ×2 (08:57→12:57)
[2017-11-29] MEDS ORDERED: FLUTICASONE PROPIONATE NA SPR 16 GM BTL SCH (09:00)
[2017-11-29] MEDS ORDERED: MULTIVITAMIN TAB PO SCH (09:00)
[2017-11-29] MEDS ORDERED: METOPROLOL SUCC 25MG EXT REL TAB PO SCH (09:00)
[2017-11-29] MEDS ORDERED: PANTOprazole SOD 40 MG TAB PO SCH (09:00)
[2017-11-29] MEDS: KETOROLAC TROMETHAMINE 15 MG/ML VIAL IV. PRN (10:39)
[2017-11-29 11:10] VITALS: BP 125/61; PULSE 64; TEMP 36.6; O2SAT 94
[2017-11-29] MEDS ORDERED: WARFARIN SOD 5 MG TAB PO STA (11:20)
[2017-11-29 15:40] VITALS: BP 117/54; PULSE 77; TEMP 36.6; O2SAT 92
== END 2017-11-29 16:37 | DRG 470 ==
LOC: C.ACU 04:51 → C.3E 06:00 → ENRESERV 09:10
PROVIDERS: ADMIT Physical Medicine & Rehabilitation Sports Medicine; ATTEND Physical Medicine & Rehabilitation Sports Medicine
PROC: 0SRC0J9 Replacement of Right Knee Joint with Synthetic Substitute, Cemented, Open Approach (ICD-10-PCS; principal; 2017-11-28 07:00)
DX: M17.11 Unilateral primary osteoarthritis, right knee (principal); D62 Acute posthemorrhagic anemia; I51.81 Takotsubo syndrome; M21.161 Varus deformity, not elsewhere classified, right knee; M21.261 Flexion deformity, right knee; E11.9 Type 2 diabetes mellitus without complications; I44.7 Left bundle-branch block, unspecified; F41.9 Anxiety disorder, unspecified; F31.9 Bipolar disorder, unspecified; Z87.891 Personal history of nicotine dependence; Z79.899 Other long term (current) drug therapy

== ENCOUNTER → 2017-12-11 | Outpatient (CLI) | payer OTHER ==
[~2017-12-11] MED LIST changes: +CLC100 PO; -IBUP-1050 PO; +MULT-890 PO; +OXYC-57 PO; +WARF2TAB PO
== END | disposition home or self-care (01) ==
LOC: C.LABSPEC 11:47
PROVIDERS: ATTEND Physical Medicine & Rehabilitation Sports Medicine
DX: Z01.89 Encounter for other specified special examinations (principal)

== ENCOUNTER → 2017-12-14 | Outpatient (CLI) | payer OTHER ==
[2017-12-14 14:51] LABS: INR 2.2 (0.9-1.1)
== END | disposition home or self-care (01) ==
LOC: C.LABSPEC 14:02
PROVIDERS: ATTEND Physician Assistant
DX: Z51.81 Encounter for therapeutic drug level monitoring (principal); Z79.01 Long term (current) use of anticoagulants

== ENCOUNTER → 2017-12-21 | Outpatient (CLI) | payer OTHER ==
[2017-12-21 11:59] LABS: INR 1.5 (0.9-1.1)
== END | disposition home or self-care (01) ==
LOC: C.LABSPEC 11:32
PROVIDERS: ATTEND Physician Assistant
DX: Z51.81 Encounter for therapeutic drug level monitoring (principal); Z79.01 Long term (current) use of anticoagulants

== ENCOUNTER → 2018-01-17 | Outpatient (CLI) | payer OTHER ==
--- NOTE | 2018-01-17 14:43 | DIAGNOSTIC IMAGING REPORT ---
R KNEE 3 VIEWS CLINICAL HISTORY: S/P RIGHT UNICOMPARTMENTAL KNEE REPLACEMENT COMPARISON STUDY: Right knee 11/28/2017. FINDINGS: There is a right total knee arthroplasty. The hardware appears intact. No fracture or dislocation within the right or left knee. Severe cartilage space narrowing within the medial compartment of the left knee with [id number] articulation and tricompartmental marginal osteophytes. No significant right knee effusion. Anterior soft tissue swelling within the right knee. Mild lateral tilt of the right patella. IMPRESSION: 1. Right total knee arthroplasty. The hardware appears intact. There is a mild lateral tilt of the right patella. 2. Severe osteoarthritis within the medial compartment of the left knee. 3. Mild anterior soft tissue swelling within the right knee. Electronically signed by: Brandon South M.D. 01/17/2018 2:41 PM Dictated Date/Time: 01/17/2018 2:38 PM
== END | disposition home or self-care (01) ==
LOC: C.RDSM 14:35
PROVIDERS: ATTEND Physician Assistant
DX: Z96.651 Presence of right artificial knee joint (principal)